=== PATIENT | female | born 1965 | race Caucasian/White ===

== ENCOUNTER 2024-11-02 11:28 | Observation (INO) ==
[2024-11-02] MEDS ORDERED: IOPAMIDOL 100 ML BOTTLE IV ONE (11:29)
[2024-11-02 13:12] LABS: Basophils # (Auto) 0.02 K/mcL (0.00-0.30); Basophils % (Auto) 0.2 % (0.0-2.0); Eosinophils # (Auto) 0.16 K/mcL (0.00-0.70); Eosinophils % (Auto) 1.4 % (0.0-7.0); Hematocrit 40.7 % (34.1-44.9); Hemoglobin 12.9 g/dL (11.2-15.7); Lymphocytes # (Auto) 1.76 K/mcL (1.50-4.80); Lymphocytes % (Auto) 15.9 % (15.5-49.0); Mean Corpuscular HGB Conc 31.7 g/dL (31.0-36.0); Monocytes # (Auto) 0.78 K/mcL (0.10-0.90); Monocytes % (Auto) 7.0 % (1.0-12.0); Neutrophils % (Auto) 75.2 % (38.0-78.0); Platelet Count 271 K/mcL (140-440); RBC 4.61 M/mcL (3.59-5.38); WBC 11.1 K/mcL (4.5-11.0)
[2024-11-02 13:24] LABS: Anion Gap 14.0 (8.0-16.0); Blood Urea Nitrogen 13 mg/dL (6-20); Calcium 9.7 mg/dL (8.6-10.4); Carbon Dioxide 23 mmol/L (22-30); Chloride 101 mmol/L (96-108); Glucose 95 mg/dL (70-105); Potassium 4.0 mmol/L (3.3-5.1); Sodium 138 mmol/L (133-145)
[2024-11-02] MEDS ORDERED: ONDANSETRON 4 MG/2 ML VIAL IV PRN (14:39)
[2024-11-02] MEDS ORDERED: NALOXONE HCL 0.4 MG/ML VIAL IV PRN (14:39)
[2024-11-02] MEDS ORDERED: VANCOMYCIN PER PHARMACY IV SCH (14:45)
[2024-11-02] MEDS: metroNIDAZOLE 500 MG/100 ML BAG IV SCH ×2 (14:57→15:40)
[2024-11-02] MEDS: CEFEPIME 2 GM VIAL IV SCH (15:28)
[2024-11-02] MEDS: VANCOMYCIN 1,000 MG in 0.9 % SODIUM CHLORIDE 250 ML IV ONE (15:32)
[2024-11-02] MEDS: CIPROFLOXACIN 400 MG/200 ML BAG IV SCH (15:39)
[2024-11-02] MEDS: LACTATED RINGERS 1,000 ML IV SCH (15:42)
[2024-11-02] MEDS ORDERED: VANCOMYCIN 1,500 MG in 0.9 % SODIUM CHLORIDE 500 ML IV ONE (16:00)
[2024-11-02] MEDS ORDERED: LIDOCAINE 1% 10 ML VIAL SQ ONE (16:05)
[2024-11-02] MEDS: diphenhydrAMINE 50 MG/ML VIAL IV PRN (17:04)
[2024-11-02] MEDS ORDERED: DEXTROSE 50% 50 ML VIAL IV PRN (17:42)
[2024-11-02] MEDS ORDERED: ACETAMINOPHEN 325 MG TABLET PO PRN (17:42)
[2024-11-02] MEDS ORDERED: MAGNESIUM HYDROXIDE 30 ML ORAL.SUSP PO PRN (17:42)
[2024-11-02] MEDS ORDERED: DEXTROSE 31 GM ORAL.SUSP PO PRN (17:42)
[2024-11-02] MEDS: VANCOMYCIN 1,250 MG in 0.9 % SODIUM CHLORIDE 500 ML IV SCH (17:49)
[2024-11-02] MEDS: hydrALAZINE 20 MG/ML VIAL IV PRN (17:59)
[2024-11-02] MEDS: CLINDAMYCIN IN 0.9 % SOD CHLOR 600 MG/50 ML BAG IV SCH (18:00)
[2024-11-02] MEDS: 0.45 % SODIUM CHLORIDE 1,000 ML IV SCH (18:57)
[2024-11-02] MEDS: SENNOSIDES 1 TABLET PO SCH (21:18)
[2024-11-02] MEDS: INSULIN LISPRO 1 UNIT/0.01 ML UNIT SQ SCH (21:19)
[2024-11-02] MEDS: DOCUSATE SODIUM 100 MG CAPSULE PO SCH (21:19)
[2024-11-02] MEDS: 0.9 % SODIUM CHLORIDE 10 ML SYRINGE IV SCH (21:20)
[2024-11-02] MEDS: HYDROmorphone 0.5 MG/0.5 ML SYRINGE IV PRN (21:23)
[2024-11-02] MEDS: ZOLPIDEM 5 MG TABLET PO PRN (21:26)
[2024-11-03 05:57] LABS: Hematocrit 37.8 % (34.1-44.9); Hemoglobin 12.1 g/dL (11.2-15.7); Mean Corpuscular HGB Conc 32.0 g/dL (31.0-36.0); Platelet Count 268 K/mcL (140-440); RBC 4.30 M/mcL (3.59-5.38); WBC 10.3 K/mcL (4.5-11.0)
[2024-11-03 06:08] LABS: ALT/SGPT 6 U/L (<40); AST/SGOT 13 U/L (<32); Albumin 3.5 gm/dL (3.2-5.2); Albumin/Globulin Ratio 1.3 (1.0-2.3); Alkaline Phosphatase 64 U/L (39-117); Anion Gap 11.0 (8.0-16.0); Bilirubin,Total 0.4 mg/dL (0.1-1.0); Blood Urea Nitrogen 11 mg/dL (6-20); Calcium 9.2 mg/dL (8.6-10.4); Carbon Dioxide 23 mmol/L (22-30); Chloride 102 mmol/L (96-108); Globulin 2.7 gm/dL (2.2-3.7); Glucose 104 mg/dL (70-105); Potassium 4.0 mmol/L (3.3-5.1); Sodium 136 mmol/L (133-145)
[2024-11-03 07:03] LABS: RBC Morphology NORMAL (Normal)
[2024-11-03] MEDS: PANTOPRAZOLE 40 MG TABLET PO SCH (07:26)
[2024-11-03] MEDS: ASPIRIN 81 MG TAB.CHEW CHEWED SCH (09:08)
[2024-11-03] MEDS: ENOXAPARIN 40 MG/0.4 ML SYRINGE SQ SCH (09:12)
[2024-11-03] MEDS: PEG 3350/NA SULF,BICARB,CL/KCL 4,000 ML ORAL.SOL PO ONE (09:15)
[2024-11-03] MEDS: ONDANSETRON 4 MG/2 ML VIAL IV PRN (12:59)
[2024-11-03] MEDS: NICOTINE 21 MG PATCH TOPICAL SCH (13:34)
[2024-11-04 06:09] LABS: Basophils # (Auto) 0.02 K/mcL (0.00-0.30); Basophils % (Auto) 0.2 % (0.0-2.0); Eosinophils # (Auto) 0.17 K/mcL (0.00-0.70); Eosinophils % (Auto) 1.9 % (0.0-7.0); Hematocrit 38.3 % (34.1-44.9); Hemoglobin 12.2 g/dL (11.2-15.7); Lymphocytes # (Auto) 1.69 K/mcL (1.50-4.80); Lymphocytes % (Auto) 18.6 % (15.5-49.0); Mean Corpuscular HGB Conc 31.9 g/dL (31.0-36.0); Monocytes # (Auto) 0.56 K/mcL (0.10-0.90); Monocytes % (Auto) 6.2 % (1.0-12.0); Neutrophils % (Auto) 73.0 % (38.0-78.0); Platelet Count 288 K/mcL (140-440); RBC 4.31 M/mcL (3.59-5.38); WBC 9.1 K/mcL (4.5-11.0)
[2024-11-04 06:24] LABS: ALT/SGPT 8 U/L (<40); AST/SGOT 15 U/L (<32); Albumin 3.2 gm/dL (3.2-5.2); Albumin/Globulin Ratio 1.1 (1.0-2.3); Alkaline Phosphatase 62 U/L (39-117); Anion Gap 11.0 (8.0-16.0); Bilirubin,Total 0.3 mg/dL (0.1-1.0); Blood Urea Nitrogen 6 mg/dL (6-20); Calcium 9.2 mg/dL (8.6-10.4); Carbon Dioxide 25 mmol/L (22-30); Chloride 102 mmol/L (96-108); Globulin 2.9 gm/dL (2.2-3.7); Glucose 103 mg/dL (70-105); Potassium 4.3 mmol/L (3.3-5.1); Sodium 138 mmol/L (133-145)
[2024-11-04] MEDS ORDERED: PROPOFOL 200 MG/20 ML VIAL IV ONE (07:12)
[2024-11-04] MEDS ORDERED: FAMOTIDINE/PF 20 MG/2 ML VIAL IV ONE (07:12)
[2024-11-04] MEDS ORDERED: fentaNYL 100 MCG/2 ML VIAL ONE (07:12)
[2024-11-04] MEDS ORDERED: DEXAMETHASONE 10 MG/ML VIAL ONE (07:12)
[2024-11-04] MEDS ORDERED: GLYCOPYRROLATE 0.2 MG/ML VIAL IV ONE (07:12)
[2024-11-04] MEDS ORDERED: LIDOCAINE 2% PF 5 ML VIAL ONE (07:12)
[2024-11-04] MEDS ORDERED: ONDANSETRON 4 MG/2 ML VIAL ONE (07:12)
[2024-11-04] MEDS ORDERED: MAGNESIUM SULFATE 2 GM/50 ML BAG IV ONE (07:16)
[2024-11-04] MEDS ORDERED: SCOPOLAMINE 1 PATCH PATCH TOPICAL PRN (07:30)
[2024-11-04] MEDS ORDERED: IPRATROPIUM/ALBUTEROL 3 ML AMPUL.NEB NEB PRN ×2 (07:30→07:44)
[2024-11-04] MEDS ORDERED: ePHEDrine 50 MG/5 ML SYRINGE (ANEST) IV ONE (07:39)
[2024-11-04] MEDS ORDERED: HYDROmorphone 0.5 MG/0.5 ML SYRINGE IV PRN (07:44)
[2024-11-04] MEDS ORDERED: NALOXONE HCL 0.4 MG/ML VIAL IV PRN (07:44)
[2024-11-04] MEDS ORDERED: ONDANSETRON 4 MG/2 ML VIAL IV PRN (07:44)
[2024-11-04] MEDS ORDERED: BENZOCAINE/MENTHOL 1 LOZENGE PO PRN (07:44)
[2024-11-04] MEDS ORDERED: METHOCARBAMOL 1,000 MG/10 ML VIAL IV PRN (07:44)
[2024-11-04] MEDS ORDERED: LACTATED RINGERS 250 ML IV PRN (07:44)
[2024-11-04] MEDS ORDERED: HYDROmorphone 0.5 MG/0.5 ML SYRINGE ONE (07:46)
[2024-11-04] MEDS: ACETAMINOPHEN 1,000 MG/100 ML BAG IV ONE (08:02)
[2024-11-04] MEDS ORDERED: ALBUTEROL SULFATE 60 PUFF INHALER INH PRN (08:15)
[2024-11-04] MEDS ORDERED: GABAPENTIN 100 MG CAPSULE PO PRN (08:15)
[2024-11-04] MEDS: fentaNYL 100 MCG/2 ML VIAL IV PRN (08:26)
[2024-11-04] MEDS: LACTATED RINGERS 1,000 ML IV SCH (08:54)
[2024-11-04] MEDS: FLUTICASONE/SALMETEROL 250/50 INHALER #14 INH SCH (08:55)
[2024-11-04] MEDS ORDERED: NICOTINE 21 MG PATCH TOPICAL SCH (10:00)
[2024-11-04] MEDS: MIDAZOLAM 2 MG/2 ML VIAL IV ONE (10:05)
[2024-11-04] MEDS: fentaNYL 100 MCG/2 ML VIAL IV ONE (10:05)
[2024-11-04] MEDS: CYCLOBENZAPRINE 10 MG TABLET PO PRN (23:33)
== END 2024-11-05 15:20 | disposition home or self-care (01) ==
LOC: MEDSUR 11:28 → ED 11:28 → MEDSUR 16:10
PROVIDERS: ADMIT Surgery; ATTEND Surgery